=== PATIENT | female | born 1980 | race Caucasian/White ===

== ENCOUNTER 2021-07-05 12:11 | Emergency (ER) | payer MEDICAID ==
[~2021-07-05] VITALS: Ht 160 cm; Wt 63.0 kg
[2021-07-05 15:13] LABS: CLARITY URINE CLEAR (CLEAR); COLOR URINE YELLOW (YELLOW); KETONES URINE NEGATIVE (NEGATIVE); LEUKOCYTE ESTERASE URINE NEGATIVE (NEGATIVE); NITRITE URINE NEGATIVE (NEGATIVE); OCCULT BLOOD URINE NEGATIVE (NEGATIVE); PROTEIN URINE NEGATIVE (NEGATIVE); SPECIFIC GRAVITY URINE 1.014 (1.005-1.030)
[2021-07-05 15:20] LABS: CHLORIDE 110 mEq/L (98-107)
[2021-07-05 15:22] LABS: BASOPHILS % 0.6 % (0.0-2.0); EOSINOPHILS % 1.9 % (0.0-5.0); HEMATOCRIT. 32.6 % (36.0-48.0); HEMOGLOBIN. 10.4 g/dL (12.0-16.0); LYMPHOCYTES % 20.4 % (20.0-50.0); MEAN CORPUSCULAR HEMOGLOBIN 24.2 pg (28.0-32.0); MEAN CORPUSCULAR VOLUME 75.8 fL (81.0-99.0); MEAN PLATELET VOLUME 8.2 fl (7.4-10.4); NEUTROPHILS % 71.1 % (40.0-76.0); PLATELET 233 x1000/uL (130-400); RED CELL DISTRIBUTION WIDTH 20.9 % (11.6-14.6)
[2021-07-05 16:05] LABS: B-HCG QUANTITATIVE 73936 mIU/mL (<3)
[2021-07-05] MEDS ORDERED: METR-167 MT (17:37)
[2021-07-05 17:50] VITALS: BP 130/58
[2021-07-09 06:06] LABS: NEISSERIA GONORRHOEAE NAA Negative (Negative)
== END 2021-07-05 19:32 | disposition home or self-care (01) ==
LOC: ER 12:11
DX: O46.91 Antepartum hemorrhage, unspecified, first trimester (principal); Z3A.10 10 weeks gestation of pregnancy
CPT/HCPCS: 36415; 76801; 80053; 81003; 81025; 84702; 85025; 86850; 86900; 87210; 87491; 87591; 99284